=== PATIENT | female | born 2000 | race Caucasian/White ===

== ENCOUNTER 2018-07-29 11:35 | Emergency (ER) | payer OTHER, MEDICAID ==
[~2018-07-29] VITALS: Ht 157.5 cm; Wt 75.7 kg
[2018-07-29 12:11] VITALS: BP 134/65; Ht 157.5 cm; Wt 75.7 kg
== END 2018-07-29 12:49 | disposition home or self-care (01) ==
LOC: ED 11:35
DX: H92.01 Otalgia, right ear (principal); J45.909 Unspecified asthma, uncomplicated; Z98.890 Other specified postprocedural states